=== PATIENT | female | born 1975 | race African-American/Black ===

== ENCOUNTER 2025-05-20 22:24 | Emergency (ER) | payer MEDICAID, OTHER ==
[~2025-05-20] VITALS: Ht 157.5 cm; Wt 68.0 kg
[2025-05-20 22:43] VITALS: TEMP 36.8; O2SAT 98
[2025-05-20 23:50] LABS: BASOPHILS % 0.6 % (0.0-2.0); EOSINOPHILS % 1.3 % (0.0-5.0); HEMATOCRIT. 39.8 % (36.0-48.0); HEMOGLOBIN. 12.9 g/dL (12.0-16.0); LYMPHOCYTES % 13.5 % (20.0-50.0); MEAN PLATELET VOLUME 7.5 fl (7.4-10.4); MONOCYTES % 6.7 % (2.0-8.0); NEUTROPHILS % 77.9 % (40.0-76.0); PLATELET 777 x1000/uL (130-400); RED BLOOD CELL COUNT 4.08 mill/uL (4.2-5.4); RED CELL DISTRIBUTION WIDTH 13.5 % (11.6-14.6)
[2025-05-20 23:59] LABS: INR 1.1
[2025-05-21 00:01] LABS: CREATININE 0.8 mg/dL (0.6-1.0); UREA NITROGEN BLOOD 13 mg/dL (9-23)
[2025-05-21] MEDS ORDERED: NAPR-1176 MT (01:46)
[2025-05-21 02:11] VITALS: BP 121/74; PULSE 87; RESP 20; O2SAT 100
== END 2025-05-21 02:12 | disposition home or self-care (01) ==
LOC: ER 22:24
DX: D25.9 Leiomyoma of uterus, unspecified (principal); N93.9 Abnormal uterine and vaginal bleeding, unspecified; E11.9 Type 2 diabetes mellitus without complications; I10 Essential (primary) hypertension; Z78.0 Asymptomatic menopausal state; Z79.1 Long term (current) use of non-steroidal anti-inflammatories (NSAID); Z86.73 Personal history of transient ischemic attack (TIA), and cerebral infarction without residual deficits; Z88.0 Allergy status to penicillin; Z88.6 Allergy status to analgesic agent
CPT/HCPCS: 36415; 76856; 80048; 85025; 86850; 86900; 99284

== ENCOUNTER 2025-06-24 01:31 | Emergency (ER) | payer MEDICAID ==
[~2025-06-24] VITALS: Ht 162.6 cm; Wt 73.0 kg
[~2025-06-24 01:31] MED LIST: NAPR-1176 MT
[2025-06-24 01:33] VITALS: O2SAT 100
[2025-06-24] MEDS: DIATR MEGLU/DIATRIZOATE SOLN 30ML ONE (05:07)
[2025-06-24 09:34] VITALS: BP 109/71; PULSE 78; RESP 16; TEMP 37; O2SAT 100
== END 2025-06-24 09:36 | disposition home or self-care (01) ==
LOC: ER 01:31
DX: Z43.1 Encounter for attention to gastrostomy (principal); E11.9 Type 2 diabetes mellitus without complications; I10 Essential (primary) hypertension; Z79.1 Long term (current) use of non-steroidal anti-inflammatories (NSAID); Z86.73 Personal history of transient ischemic attack (TIA), and cerebral infarction without residual deficits; Z88.0 Allergy status to penicillin; Z88.6 Allergy status to analgesic agent
CPT/HCPCS: 99284; 43762; 74018; Q9963; 43760

== ENCOUNTER 2025-09-02 18:54 | Emergency (ER) | payer MEDICAID ==
[~2025-09-02] VITALS: Ht 165.1 cm; Wt 55.0 kg
[2025-09-02 18:55] VITALS: O2SAT 97
[2025-09-02] MEDS: ACETAMINOPHEN 325MG TABLET PO ONE (20:26)
[2025-09-02 21:34] VITALS: BP 121/73; PULSE 69; RESP 15; TEMP 36.7; O2SAT 100
== END 2025-09-02 22:06 | disposition home or self-care (01) ==
LOC: ER 18:54
DX: S09.90XA Unspecified injury of head, initial encounter (principal); M25.511 Pain in right shoulder; E11.9 Type 2 diabetes mellitus without complications; I10 Essential (primary) hypertension; Z79.1 Long term (current) use of non-steroidal anti-inflammatories (NSAID); Z88.0 Allergy status to penicillin; Z88.6 Allergy status to analgesic agent; Z86.73 Personal history of transient ischemic attack (TIA), and cerebral infarction without residual deficits; W18.30XA Fall on same level, unspecified, initial encounter; Y93.89 Activity, other specified; Y92.89 Other specified places as the place of occurrence of the external cause; Y99.8 Other external cause status
CPT/HCPCS: 72170; 73030; 99284

== ENCOUNTER 2025-09-20 17:16 | Emergency (ER) | payer MEDICAID ==
[~2025-09-20] VITALS: Ht 165.1 cm; Wt 75.0 kg
[~2025-09-20 17:16] MED LIST changes: +ASCO500C18 MT; +FERR325T6 MT; +GABA-529 PO; -NAPR-1176 MT
[2025-09-20 17:19] VITALS: O2SAT 100
[2025-09-20] MEDS: ACETAMINOPHEN 160MG/5ML UDC PO ONE (20:50)
[2025-09-20 21:30] VITALS: BP 121/69; PULSE 70; RESP 18; TEMP 36.9; O2SAT 98
== END 2025-09-20 21:50 | disposition home or self-care (01) ==
LOC: ER 17:16
DX: K94.23 Gastrostomy malfunction (principal); E11.9 Type 2 diabetes mellitus without complications; I10 Essential (primary) hypertension; Z79.1 Long term (current) use of non-steroidal anti-inflammatories (NSAID); Z86.73 Personal history of transient ischemic attack (TIA), and cerebral infarction without residual deficits; Z88.6 Allergy status to analgesic agent; Z88.0 Allergy status to penicillin
CPT/HCPCS: 43760; 43762; 99284

== ENCOUNTER 2025-10-26 20:36 | Inpatient (IN) | payer MEDICAID ==
[~2025-10-26] VITALS: Ht 165.1 cm; Wt 56.3 kg
[~2025-10-26 20:36] MED LIST changes: +AMLO10TA80 PO; +CLOP-31 GT; +FERR-63 GT; +HYDR-2988 GT; +LIP40 GT; +LOSA25TA26 GT; +PANT40VI IV
[2025-10-26 20:45] VITALS: O2SAT 100
[2025-10-26 20:55] VITALS: PULSE 61; RESP 12; O2SAT 100
[2025-10-26 22:40] VITALS: PULSE 68; RESP 16; O2SAT 100
[2025-10-26 23:19] LABS: BASOPHILS % 0.1 % (0.0-2.0); EOSINOPHILS % 0.1 % (0.0-5.0); HEMATOCRIT. 32.2 % (36.0-48.0); HEMOGLOBIN. 10.4 g/dL (12.0-16.0); LYMPHOCYTES % 15.1 % (20.0-50.0); MEAN PLATELET VOLUME 7.2 fl (7.4-10.4); MONOCYTES % 5.6 % (2.0-8.0); NEUTROPHILS % 79.1 % (40.0-76.0); PLATELET 486 x1000/uL (130-400); RED BLOOD CELL COUNT 3.65 mill/uL (4.2-5.4); RED CELL DISTRIBUTION WIDTH 15.6 % (11.6-14.6)
[2025-10-26 23:31] LABS: CREATININE 0.4 mg/dL (0.6-1.0); UREA NITROGEN BLOOD 7 mg/dL (9-23)
[2025-10-26 23:33] LABS: TROPONIN I HIGH SENSITIVITY 8 ng/L (3.0-34)
[2025-10-26 23:40] LABS: INR 1.0
[2025-10-27] VITALS (23 sets, daily range): BP systolic 101–181; BP diastolic 66–94; PULSE 53–122; RESP 12–20; TEMP 36.5848–37; O2SAT 98–100
[2025-10-27] MEDS ORDERED: ONDANSETRON HCL 4MG/2ML INJ IV PRN (01:45)
[2025-10-27] MEDS ORDERED: CLONIDINE 0.1MG TABLET GT PRN (01:45)
[2025-10-27] MEDS ORDERED: GUAIFENESIN 200MG/10ML SUGAR FREE UDC PO PRN (01:45)
[2025-10-27] MEDS ORDERED: DOCUSATE SODIUM 100MG CAPSULE PO PRN (01:45)
[2025-10-27] MEDS ORDERED: ACETAMINOPHEN 325MG TABLET PO PRN (01:45)
[2025-10-27] MEDS ORDERED: CLONIDINE 0.1MG TABLET PO PRN (01:45)
[2025-10-27] MEDS: HYDRALAZINE HCL 10MG TABLET GT SCH (06:54)
[2025-10-27] MEDS ORDERED: ENOXAPARIN 30MG/0.3ML SYR SUBCUT SCH (09:00)
[2025-10-27 09:57] LABS: HEPATITIS C AB NON REACTIVE (Neg) (Negative)
[2025-10-27] MEDS ORDERED: LIP40 GT (10:35)
[2025-10-27] MEDS ORDERED: PANT40VI IV (10:35)
[2025-10-27] MEDS ORDERED: LOSA25TA26 GT (10:35)
[2025-10-27] MEDS ORDERED: GABA-529 PO (10:35)
[2025-10-27] MEDS ORDERED: FERR-63 GT (10:35)
[2025-10-27] MEDS ORDERED: CLOP-31 GT (10:35)
[2025-10-27] MEDS: ENOXAPARIN 30MG/0.3ML SYR SUBCUT SCH (11:00)
[2025-10-27] MEDS: AMLODIPINE 10MG TABLET PO SCH (11:02)
[2025-10-27] MEDS: PANTOPRAZOLE SODIUM 40 MG/VIAL IV SCH ×2 (11:02→18:14)
[2025-10-27] MEDS: HYDRALAZINE 20MG/ML VIAL IV PRN (16:34)
[2025-10-27] MEDS: LORAZEPAM 0.5MG TABLET PO PRN (18:00)
[2025-10-27] MEDS: LOSARTAN 25 MG TABLET GT SCH (18:02)
[2025-10-27] MEDS: ATORVASTATIN CALCIUM 40MG TABLET GT SCH (22:18)
[2025-10-28] VITALS (22 sets, daily range): BP systolic 104–141; BP diastolic 64–96; PULSE 77–110; RESP 12–24; TEMP 36.3–38; O2SAT 98–100
[2025-10-28] MEDS ORDERED: LOSARTAN 25 MG TABLET GT SCH (09:00)
[2025-10-28] MEDS: CLOPIDOGREL 75MG TABLET GT SCH (10:11)
[2025-10-28] MEDS: FERROUS SULFATE 325MG TABLET PO SCH (10:11)
[2025-10-28] MEDS: ACETAMINOPHEN 325MG TABLET PO PRN (21:07)
[2025-10-29] VITALS (20 sets, daily range): BP systolic 96–132; BP diastolic 68–90; PULSE 83–106; RESP 9–17; TEMP 36.6–37.4; O2SAT 96–100
[2025-10-29] MEDS: IPRATROPIUM/ALBUTEROL 0.5-3(2.5)MG/3ML NEB HHN PRN (15:53)
== END 2025-10-29 17:44 | disposition short-term general hospital (02) | DRG 133 ==
LOC: ER 20:36 → 5EST 23:24 → EDBEDREQ 23:52 → EDBEDREQTM 23:52 → 5EST 10-27 05:12
PROVIDERS: ADMIT Internal Medicine; ATTEND Internal Medicine
PROC: 5A1945Z Respiratory Ventilation, 24-96 Consecutive Hours (ICD-10-PCS; principal; 2025-10-26)
DX: J96.20 Acute and chronic respiratory failure, unspecified whether with hypoxia or hypercapnia (principal); G93.41 Metabolic encephalopathy; R53.2 Functional quadriplegia; I11.0 Hypertensive heart disease with heart failure; Z93.0 Tracheostomy status; Z79.02 Long term (current) use of antithrombotics/antiplatelets; D63.8 Anemia in other chronic diseases classified elsewhere; E11.9 Type 2 diabetes mellitus without complications; I69.30 Unspecified sequelae of cerebral infarction; I50.9 Heart failure, unspecified; R00.1 Bradycardia, unspecified; I95.9 Hypotension, unspecified; I16.0 Hypertensive urgency; D25.9 Leiomyoma of uterus, unspecified; N81.10 Cystocele, unspecified; I25.10 Atherosclerotic heart disease of native coronary artery without angina pectoris; Z74.01 Bed confinement status; Z88.0 Allergy status to penicillin; Z79.899 Other long term (current) drug therapy; Z88.6 Allergy status to analgesic agent; Z85.841 Personal history of malignant neoplasm of brain
CPT/HCPCS: 31720; 36415; 71045; 80048; 82962; 83880; 84484; 85025; 86705; 87340; 93005; 94003; 94070; 94640; 94664; 99285; A4606; J0360; J1650; J2470